=== PATIENT | male | born 1990 | race Caucasian/White ===

== ENCOUNTER 2022-09-13 13:57 | Emergency (ER) | payer OTHER, SELFPAY ==
[2022-09-13 14:17] VITALS: BP 154/89; PULSE 61; RESP 14; TEMP 36.8; O2SAT 97; BMI 44.3
--- NOTE | 2022-09-13 14:45 | ED_ITS ---
HPI - Extremity Problem General: Chief complaint: Extremity Injury, Upper Stated complaint: smashed finger on a wood splitter Time Seen by Provider: 09/13/22 14:39 History of Present Illness: This 32-year-old male presents to the ER for evaluation of right hand injury. He was at work, using a wood splitter to split some wood when the wood splitter accidentally smashed his right ring finger. There is associated ragged laceration on the palmar surface of the finger. Patient is right-handed. He denies any other injuries. This is a Workmen's Comp. case. Associated symptoms: Deny chest pain Review of Systems Const: Denies: chills, body aches or change in appetite Eyes: Denies: change in vision or eye discharge ENMT: Denies: throat pain, dental pain or nasal discharge Card: Denies: chest pain or lightheadedness : Denies: dysuria Musc: Reports: extremity pain (Right ring finger) Neuro: Denies: headache(s) or weakness in extremities Psych: Denies: depression Mason/Lymph: Denies: easy bruising All/Imm: Denies: urticaria, tongue swelling or facial swelling Physical Exam Const: COMMON NORMALS: no acute distress, patient oriented x3, no limitations and alert HENMT: COMMON NORMALS: normocephalic HEAD & SCALP: normocephalic Eye: COMMON NORMALS: EOMs intact bilaterally Neck/C-Spine: COMMON NORMALS: full ROM and supple Chest: COMMONS NORMALS: normal inspection of the chest Resp: COMMON NORMALS: normal respiratory effort, No retractions, No use of accessory muscles and clear to auscultation bilaterally AUSCULTATION: clear to auscultation bilaterally Cardio: COMMON NORMALS: regular rate, regular rhythm and No murmurs present (Cardio) RATE: regular rate RHYTHM: regular rhythm GI: COMMON NORMALS: Normal to inspection, nondistended, normoactive bowel sounds present and non-tender : COMMON NORMALS: Yes no CVA tenderness BLADDER/KIDNEY EXAM: Yes no CVA tenderness Back/Pelvis: COMMON NORMALS: no CVA tenderness and no thoracic nor lumbar tenderness Extremity: GENERAL: Yes normal exam except as noted OTHER: There is a 6 cm ragged laceration on the palmar surface of the right ring finger extending from the level of the PIP to just distal to the DIP joint. Patient is able to mildly flex the finger, though not to a great extent, partially because of pain. Neuro: COMMON NORMALS: patient oriented x3 and no focal motor deficits SENSORIUM/ORIENTATION: Yes alert Psych: COMMON NORMALS: mental status grossly normal and cooperative Procedures Laceration Laceration 1: Side (If applicable): right (Ring finger) Size (cm): 6 Description: irregular Depth: involves muscle layer Local Anesthetic: lidocaine 1% Amount of anesthesia used (mL): 4 Pre-repair: wound explored, irrigated extensively and deep structures intact (Tendons intact) Skin layer closed with: nylon Size (cm): 4-0 Number of sutures: 5 Technique: simple, interrupted Course Vital Signs: Vital signs: Vital Signs Temperature 98.3 F 09/13/22 14:17 Pulse Rate 61 09/13/22 14:17 Respiratory Rate 14 09/13/22 14:17 Blood Pressure 154/89 09/13/22 14:17 Pulse Oximetry 97 09/13/22 14:17 Oxygen Delivery Me thod Room Air 09/13/22 14:17 MDM - Extremity (Nontraumatic) Medical Decision Making Medical decision making: Patient presents for evaluation of crush injury to the right ring finger. He is right-handed. X-ray reveals no fracture/dislocation. The hand was soaked in a Betadine solution following which it was thoroughly washed. Case discussed with Dr. Ly, orthopedic surgeon on-call. He recommends closing the wound loosely and discharging patient with oral antibiotics. He will follow-up with patient in his office. I relayed my discussion with patient who noted that this is a Workmen's Comp. case and they have their own set of physicians. Lab Data Radiology Impressions Hand X-Ray 09/13/22 14:54 IMPRESSION: Negative exam. No acute bony abnormalities. Discharge Plan Discharge Patient Disposition: Home Clinical Impression: Laceration of right ring finger, Crushing injury of right ring finger Condition: Stable Prescriptions: New cephalexin 500 mg capsule 500 mg PO Q8H 7 Days Qty: 21 0RF tramadol 50 mg tablet 50 mg PO Q6H PRN (Reason: pain) Qty: 20 0RF Discharge Orders: Discharge ED (Routine); Ordered 09/13/22 Ordered By: Judith Henderson Discharge Diet: Usual diet Discharge Activity: Resume usual activity Patient Instructions: Opioid Safety, Pain Management Activity Restrictions/Additional Instructions: Keep wound clean and dry for 48 hours before you get it wet. After that, you may wash wound with mild soap and water and dry it afterwards. Apply triple antibiotics to it twice a day. Do not soak hand in water for prolonged period of time. Avoid any activity that will rip open the wound. Take antibiotics (Keflex) as prescribed. Take tramadol as needed for pain. An appointment will be set up for you to follow-up with Dr. Ly, orthopedic surgeon in the office. Follow-up with your primary care physician in 7 to 10 days for removal of stitches. Return if you develop any signs of infection like redness, swelling, purulent discharge or fever. Coding Level of Care Code ED Private Household Worker for Jonah Nichols
--- NOTE | 2022-09-13 14:54 | XRR_ITS ---
PROCEDURE INFORMATION: Exam: XR Right Hand Exam date and time: 09/13/2022 3:01 PM Age: 32 years old Clinical indication: Injury or trauma; Hand; Injury details: Right ring finger laceration; Additional info: Right ring finger injury TECHNIQUE: Imaging protocol: Radiologic exam of the right hand. Views: 1 or 2 views. COMPARISON: No relevant prior studies available. FINDINGS: Bones/joints: Osseous structures are intact. No fracture or malalignment. Visualized joint surfaces are preserved. Soft tissues: Mild soft tissue swelling proximal aspect 4th digit.. XR/XR hand RT 2V [id number] IMPRESSION: Negative exam. No acute bony abnormalities.
--- NOTE | 2022-09-14 07:44 | DCPLANNER ---
Addendum entered by Ainsley Franklin 09/15/22 10:04: updated message received from ortho regarding follow up appointment: Smooth, pt's case fitter called, said she is waiting to get ER records so that they can review them and decide if they want to authorize pt to be seen here or if they want to send pt to a hand specialist. Smooth said someone from her office will call back to let us know what they decide and if they want to schedule pt. Smooth: [phone] Addendum entered by Ainsley Franklin 09/14/22 09:50: training development manager received the following message from the ortho clinic regarding follow up appointment: spoke to Jarrett mae/ Dominik - she is going to get in touch with their work [employer] company and see what doctor they want to send him to. I gave her Dr. Ly information and she will verify with . She would not give me any of the contact info for the work comp. I let her know we are wanting to get him in this Monday. She said if I don't hear anything by Monday give her a call back to get an update. Her direct line is [phone] I have reached out to the patient and let him know the status. He understands and I told him I will call him as soon as i hear something back. He was given the option to schedule if he would like to be self pay and pay for the visit, but he declined and said he would wait. Original Note: training development manager had message to schedule a follow up appointment for patient with ortho. training development manager sent patients information to the front office staff at ortho. Patients information will be printed and reviewed. Clinic will call patient with appointment information.
--- NOTE | 2022-09-14 08:40 | DCPLANNER ---
Addendum entered by Ainsley Franklin 10/07/22 10:34: This appointment was rescheduled Original Note: physician relations manager called patient due to no primary care physician - patient wanted help in getting established with a primary care physician. physician relations manager called [facility] - gave clinic patients information, a follow up appointment was scheduled for , September 22, 2022 at 8:[address] Mendoza. Patient is aware of appointment.
== END 2022-09-13 18:22 | disposition home or self-care (01) ==
PROVIDERS: Emergency Provider Family Medicine
DX: S61.214A Laceration without foreign body of right ring finger without damage to nail, initial encounter (principal); S67.194A Crushing injury of right ring finger, initial encounter; W31.89XA Contact with other specified machinery, initial encounter
CPT/HCPCS: 73120; 99283

== ENCOUNTER → 2023-02-15 13:14 | Outpatient (BNVA) | payer OTHER, SELFPAY | PROVIDERS: Visit Provider Nurse Practitioner | DX: Z20.822 Contact with and (suspected) exposure to COVID-19 (principal); B34.9 Viral infection, unspecified | CPT/HCPCS: 87426 ==

== ENCOUNTER 2023-10-09 11:26 | Emergency (ER) | payer SELFPAY ==
[2023-10-09 11:36] VITALS: BP 154/81; PULSE 60; RESP 20; TEMP 36.6; O2SAT 99; BMI 43.8
[2023-10-09 12:59] LABS: Basophils % 0.3 %; Eosinophils % 0.3 %; Hematocrit 44.9 % (37-53); Lymphocytes # 1.1 10^3/uL (0.8-4.8); Lymphocytes % 9.4 %; Mean Corpuscular HGB Conc 33.4 g/dL (30-55); Mean Corpuscular Hemoglobin 28.2 pg (27-33); Mean Corpuscular Volume 84.4 fl (82-101); Mean Platelet Volume 9.3 fL (7.4-10.4); Monocytes # 0.3 10^3/uL (0.2-0.9); Neutrophils # 9.97 10^3/uL (1.8-7.7); Neutrophils % 86.6 %; Nucleated Red Blood Cells % 0 %; Platelet Count 372 10^3/cmm (157-399); Red Blood Count 5.32 10^6/uL (3.85-5.65); White Blood Count 11.51 10^3/uL (3.29-11.43)
[2023-10-09 13:23] LABS: Alanine Aminotransferase 12 U/L (0-41); Albumin Level 4.4 g/dL (3.5-5.2); Alkaline Phosphatase 79 U/L (40-130); Anion Gap 14.9 (5-19); Aspartate Amino Transferase 12 U/L (0-40); Blood Urea Nitrogen 12 mg/dL (6-20); Carbon Dioxide 24 mmol/L (22-29); Chloride 103 mmol/L (98-107); Creatinine Clr Calc Pharmacy 195.6429; Globulin 3.2 g/dL (1.3-4.6); Glomerular Filtration Rate 131.5 mL/min (90-130); Glucose 120 mg/dL (65-115); Lipase 21 U/L (13-60); Osmolality Calculated 287 mOsm/kg (285-295); Potassium 3.9 mmol/L (3.5-5.1); Sodium 138 mmol/L (136-145); Total Bilirubin 0.3 mg/dL (0.15-1.2); Total Protein 7.6 g/dL (6.6-8.7)
[2023-10-09 14:19] VITALS: BP 125/76; PULSE 67; RESP 16; O2SAT 98
--- NOTE | 2023-10-09 14:35 | US_ITS ---
WS: [id number] ULTRASOUND ABDOMEN LIMITED CLINICAL INFORMATION: ruq pain COMPARISON: None. FINDINGS: Liver Size: Enlarged Craniocaudal length: 18.6 cm. Echogenicity: Coarse Surface nodularity: None. Mass (size and location): None. Bile ducts Intrahepatic ducts: Normal. Common bile duct diameter: 0.5 cm. Gallbladder Cholelithiasis with mild gallbladder wall thickening and mild wall edema Gallstones: Present Gallbladder sludge: None. Gallbladder wall thickenin mm Pericholecystic fluid: None. Sonographic Davis sign: Absent. Pancreas Normal as visualized. Right kidney: Normal. Hydronephrosis: None. Size: 10.9 cm x 6.6 cm x 5.6 cm. Abdominal aorta and IVC Visualized portions are normal. Ascites: None. US/US gall bladder [id number] IMPRESSION: 1. Hepatomegaly with coarse hepatic fatty infiltration. Recommend correlation with liver function tests. 2. Dense cholelithiasis. Mild gallbladder wall thickening measuring 4 mm with mild edema. Findings can be seen with cholecystitis. Recommend correlation with biliary function studies. Gallbladder function could be further evaluated with HIDA scan if indicated. 3. Normal common bile duct measuring 5 mm. 4. No hydronephrosis in the RIGHT kidney.
--- NOTE | 2023-10-09 14:35 | ED_ITS ---
HPI - Nausea/Vomiting/Diarrhea 2 General: Chief complaint: Nausea/Vomiting/Diarrhea Stated complaint: upper abd pain, n/v Time Seen by Provider: 10/09/23 14:32 Source: patient Mode of arrival: ambulatory Limitations: no limitations History of Present Illness: 33-year-old male states that he ate [employer] food last night and since then he has been having some right upper quadrant pain with vomiting and diarrhea. He states his pains been a sharp pains worse movement palpation his head at multiple episodes of vomiting. States he had some GI issues in the past denies any abdominal surgeries in the past. Associated nausea: No Associated symtoms: Denies chest pain, headache(s) or nausea Review of Systems 2 Const: Denies: fever(s), chills, body aches or change in appetite ENMT: Denies: throat pain or dental pain Card: Denies: chest pain Resp: Denies: dyspnea GI: Reports: abdominal pain; Denies: nausea, vomiting or diarrhea Musc: Denies: neck pain or back pain Skin/Breast: Denies: rash Neuro: Denies: headache(s) PFSH ED 2 PFSH: Medical History Psychiatric care Manic bipolar I disorder Depression Anxiety PTSD (post-traumatic stress disorder) Surgical History History of nasal surgery reconstruction Family History Grandmother Cancer Maternal-bone, skin Other Bleeding disorder Dementia Hyperlipidemia Hypertension Lung disease Psychiatric illness Stroke Denies family history of Diabetes CAD (coronary artery disease) Clotting disorder Chronic kidney disease (CKD) Anesthesia complication Social History Smoking and tobacco/nicotine status: current every day tobacco/nicotine user e- cigarettes E-Cigarette Details: vaporizer device Alcohol intake: current Alcohol intake frequency: holidays/special occasions only Substance/Drug Use: former Lives independently: Yes Marital status: Life Partner Number of children: 0 Current occupational status: employed Current occupation: [employer] Eufemia/Gnosticist: [employer] Special eufemia needs: No Agree to transfusion: Yes Physical Exam 2 Const: COMMON NORMALS: no acute distress, patient oriented x3 and healthy appearing HENMT: COMMON NORMALS: normocephalic and atraumatic HEAD & SCALP: n ormocephalic and atraumatic Eye: COMMON NORMALS: Equal, round and reactive pupils present and EOMs intact bilaterally PUPIL: Yes Equal, round and reactive pupils present Neck/C-Spine: COMMON NORMALS: full ROM and supple Chest: COMMONS NORMALS: normal inspection of the chest Resp: COMMON NORMALS: normal respiratory effort, No retractions, No use of accessory muscles and clear to auscultation bilaterally AUSCULTATION: clear to auscultation bilaterally Cardio: COMMON NORMALS: regular rate, regular rhythm and No murmurs present (Cardio) RATE: regular rate RHYTHM: regular rhythm GI: COMMON NORMALS: Normal to inspection, nondistended, normoactive bowel sounds present, Soft to palpation and no masses PALPATION: Yes Soft to palpation and Yes Tenderness to palpation present (GI) Details: RUQ Extremity: COMMON NORMALS: normal to inspection and full ROM Neuro: COMMON NORMALS: patient oriented x3, moves all extremities and no focal motor deficits Psych: COMMON NORMALS: mental status grossly normal, Normal thought process present and cooperative THOUGHT PROCESS: Normal thought process present Skin: COMMON NORMALS: no rashes or lesions noted and no wounds GENERAL SKIN EXAM: no rashes or lesions noted Course 2 Vital Signs: Vital signs: Vital Signs Temperature 97.8 F 10/09/23 11:36 Pulse Rate 67 10/09/23 14:19 Respiratory Rate 16 10/09/23 14:57 Blood Pressure 125/76 10/09/23 14:19 Pulse Oximetry 98 10/09/23 14:19 Oxygen Delivery Me thod Room Air 10/09/23 14:19 MDM - Nausea/Vomiting/Diarrhea Medical Decision Making Patient presents here with abdominal pain he does have cholelithiasis no signs of cholecystitis here his pains improved we will put him on Augmentin along with pain meds nausea medicine we will get him follow-up with surgery he is to return if worsening he understands agrees to plan. Medical Records I reviewed the patient's medical records. Lab Data I reviewed the patient's lab results. 10/09/23 12:12 10/09/23 12:12 Radiology Impressions Gallbladder Ultrasound 10/09/23 14:35 IMPRESSION: 1. Hepatomegaly with coarse hepatic fatty infiltration. Recommend correlation with liver function tests. 2. Dense cholelithiasis. Mild gallbladder wall thickening measuring 4 mm with mild edema. Findings can be seen with cholecystitis. Recommend correlation with biliary function studies. Gallbladder function could be further evaluated with HIDA scan if indicated. 3. Normal common bile duct measuring 5 mm. 4. No hydronephrosis in the RIGHT kidney. Laboratory Results WBC 11.51 10^3/uL (3.29-11.43) H 10/09/23 12:12 RBC 5.32 10^6/uL (3.85-5.65) 10/09/23 12:12 Hgb 15.00 g/dL (11.27-16.99) 10/09/23 12:12 Hct 44.9 % (37-53) 10/09/23 12:12 MCV 84.4 fl (82-101) 10/09/23 12:12 MCH 28.2 pg (27-33) 10/09/23 12:12 MCHC 33.4 g/dL (30-55) 10/09/23 12:12 RDW 13.0 % (12.1-15.1) 10/09/23 12:12 Plt Count 372 10^3/cmm (157-399) 10/09/23 12:12 MPV 9.3 fL (7.4-10.4) 10/09/23 12:12 Neut % (Auto) 86.6 % 10/09/23 12:12 Lymph % (Auto) 9.4 % 10/09/23 12:12 [place] % (Auto) 3.0 % 10/09/23 12:12 Eos % (Auto) 0.3 % 10/09/23 12:12 Baso % (Auto) 0.3 % 10/09/23 12:12 Neut # (Auto) 9.97 10^3/uL (1.8-7.7) H 10/09/23 12:12 Lymph # (Auto) 1.1 10^3/uL (0.8-4.8) 10/09/23 12:12 [place] # (Auto) 0.3 10^3/uL (0.2-0.9) 10/09/23 12:12 Eos # (Auto) 0.0 10^3/uL (0.0-0.8) 10/09/23 12:12 Baso # (Auto) 0.0 10^3/uL (0.0-0.1) 10/09/23 12:12 Nucleated RBC % (auto) 0 % 10/09/23 12:12 Nucleated RBCs # 0.0 /100WBC 10/09/23 12:12 Sodium 138 mmol/L (136-145) 10/09/23 12:12 Potassium 3.9 mmol/L (3.5-5.1) 10/09/23 12:12 Chloride 103 mmol/L (98-107) 10/09/23 12:12 Carbon Dioxide 24 mmol/L (22-29) 10/09/23 12:12 Anion Gap 14.9 (5-19) 10/09/23 12:12 BUN 12 mg/dL (6-20) 10/09/23 12:12 Creatinine 0.7 mg/dL (0.7-1.2) 10/09/23 12:12 GFR Calculation 131.5 mL/min (90-130) H 10/09/23 12:12 Glucose 120 mg/dL (65-115) H 10/09/23 12:12 Calculated Osmolality 287 mOsm/kg (285-295) 10/09/23 12:12 Calcium 9.0 mg/dL (8.5-10.5) 10/09/23 12:12 Total Bilirubin 0.3 mg/dL (0.15-1.2) 10/09/23 12:12 AST 12 U/L (0-40) 10/09/23 12:12 ALT 12 U/L (0-41) 10/09/23 12:12 Alkaline Phosphatase 79 U/L (40-130) 10/09/23 12:12 Total Protein 7.6 g/dL (6.6-8.7) 10/09/23 12:12 Albumin 4.4 g/dL (3.5-5.2) 10/09/23 12:12 Globulin 3.2 g/dL (1.3-4.6) 10/09/23 12:12 Lipase 21 U/L (13-60) 10/09/23 12:12 All radiology interpretation(s) finalized by discharge Discharge Plan Discharge Patient Disposition: Home Clinical Impression: Abdominal pain Cholelithiasis Qualifiers: Cholelithiasis location: gallbladder Cholecystitis presence: without cholecystitis Biliary obstruction: without biliary obstruction Qualified Code(s): K80.20 - Calculus of gallbladder without cholecystitis without obstruction Condition: Stable Prescriptions: New hydrocodone-acetaminophen 5-325 mg tablet 1 tab PO Q6H PRN (Reason: pain) Qty: 14 0RF ondansetron 4 mg tablet,disintegrating 4 mg PO Q6H PRN (Reason: nausea and vomiting) Qty: 14 0RF amoxicillin-pot clavulanate [Augmentin] 500-125 mg tablet 1 tab PO BID Qty: 14 0RF No Action divalproex [Depakote ER] 250 mg tablet extended release 24 hr 750 mg PO .hs Qty: 270 1RF fluoxetine [Prozac] 40 mg capsule 40 mg PO DAILY Qty: 30 2RF hydroxyzine HCl 50 mg tablet 100 mg PO .HS PRN (Reason: insomnia) Qty: 60 1RF Discharge Orders: Discharge ED (Routine); Ordered 10/09/23 Ordered By: Yanni Suresh Referrals: Bobby Bass MD [Physician] - 1-3 days Discharge Diet: Advance as tolerated Discharge Activity: Resume usual activity Patient Instructions: Biliary Colic (ED), Gallstones (ED), Abdominal Pain (ED) Coding Level of Care Code ED Demo Coordinator for Jonah Nichols
[2023-10-09 14:57] VITALS: RESP 16
[2023-10-09] MEDS: morphine 4 mg/mL SDV 1 mL IVP (14:57)
[2023-10-09] MEDS: ondansetron 2 mg/ML SDV 2 mL 4 MG IVP (15:02)
[2023-10-09] MEDS: sodium chloride 0.9% 1,000 ML 999 ML IV (15:11)
[2023-10-09 15:59] VITALS: PULSE 67; RESP 16; O2SAT 98
[2023-10-09 16:36] LABS: Add Urine Microscopic? NO; Charge for UA Resulting for Rev
[2023-10-09 16:46] LABS: Bilirubin Urine Neg (Negative); Blood Urine Neg (Negative); Glucose Urine UA Norm (Normal); Ketones Urine Negative (Negative); Leukocyte Esterase Urine Negative (Negative); Nitrate Urine Negative (Negative); Protein Urine Neg (Negative); Urine Appearance Clear (CLEAR); Urine Color Yellow (Yellow); Urobilinogen Urine Norm (Negative); pH Urine 6 (5-7)
--- NOTE | 2023-10-10 08:08 | DCPLANNER ---
Message sent to general surgery for follow up/ cholelithiasis-
== END 2023-10-09 16:09 | disposition home or self-care (01) ==
PROVIDERS: Emergency Provider Emergency Medicine
DX: K80.20 Calculus of gallbladder without cholecystitis without obstruction (principal); F17.290 Nicotine dependence, other tobacco product, uncomplicated
CPT/HCPCS: 36415; 76705; 80053; 81003; 83690; 85025; 96361; 96374; 96375; 99284; J2270; J2405; J7030